=== PATIENT | female | born 1940 | race Caucasian/White ===

== ENCOUNTER 2024-06-17 06:06 | Day surgery (SDC) | payer MEDICARE, OTHER, SELFPAY ==
[2024-06-17 08:05] VITALS: BMI 27.9
[2024-06-17 08:30] VITALS: BP 168/88
[2024-06-17] MEDS: NORMOSOL-R/PLASMALYTE-A 1000 IV (08:50)
[2024-06-17] MEDS: TYLENOL 1000 MG PO (08:50)
[2024-06-17 08:59] VITALS: BMI 27.9
[2024-06-17 11:33] VITALS: BP 118/57
[2024-06-17 11:45] VITALS: BP 108/56
[2024-06-17 12:00] VITALS: BP 118/52
[2024-06-17 12:15] VITALS: BP 137/54
[2024-06-17 12:33] VITALS: BP 142/66
== END 2024-06-17 12:53 | disposition home or self-care (01) ==
LOC: SDS 06:06
PROVIDERS: ATTENDING PHYSICIAN Surgery
DX: K64.2 Third degree hemorrhoids (principal); K64.4 Residual hemorrhoidal skin tags
CPT/HCPCS: 46255; 88304